=== PATIENT | male | born 1955 | race African-American/Black ===

== ENCOUNTER 2018-03-23 08:23 | Emergency (ER) | payer SELFPAY ==
[2018-03-23] MEDS: KETOROLAC 30 MG INJ IM (09:03)
== END 2018-03-23 10:35 | disposition home or self-care (01) ==
LOC: FTE 08:23
DX: M25.551 Pain in right hip (principal); I10 Essential (primary) hypertension; E11.9 Type 2 diabetes mellitus without complications
CPT/HCPCS: 73510; 96372; 99284-25